=== PATIENT | male | born 1960 | race Caucasian/White ===

== ENCOUNTER 2021-04-21 17:50 | Inpatient (IN) | payer OTHER ==
[~2021-04-21] VITALS: Ht 172.7 cm; Wt 71.2 kg
[2021-04-21 18:11] VITALS: BP 122/77; PULSE 86; TEMP 97.4
[2021-04-21 19:58] LABS: HEMATOCRIT 49.9 % (42.0-52.0); HEMOGLOBIN 17.7 g/dl (13.5-18.0); MEAN CELL VOLUME 105 fl (80.0-100.0); MEAN CORPUSCULAR HEMOGLOBIN 37 pg (27.0-31.0); MEAN CORPUSCULAR HGB CONC 36 g/dl (33.0-37.0); MEAN PLATELET VOLUME 11.8 fl (7.4-10.4); PLATELET COUNT 210 K/mm3 (130-400); RED BLOOD COUNT 4.74 M/mm3 (4.20-5.60); REDCELL DISTRIBUTION WIDTH-CV 14.1 % (11.5-14.5)
[2021-04-21 20:00] VITALS: BP 126/75; PULSE 84; TEMP 97.7
[2021-04-21 20:11] LABS: INR 1.1 (0.8-3.0); PROTHROMBIN TIME 12.4 SECONDS (9.7-12.8)
[2021-04-21 20:13] LABS: PARTIAL THROMBOPLASTIN TIME 22.9 SECONDS (26.0-37.0)
[2021-04-21 20:34] LABS: ARTERIAL BLD GAS O2 SATURATION 94.3 % (92-100); ARTERIAL BLD GAS TCO2 CT 17.1; ARTERIAL BLOOD GAS BASE EXCESS -8.9 (-2-2); ARTERIAL BLOOD GAS PCO2 32.9 mmHg (35-45); ARTERIAL BLOOD GAS PO2 74.4 mmHg (80-100); ARTERIAL BLOOD GAS pH 7.31 (7.35-7.45)
[2021-04-21] MEDS ORDERED: ZITHROMAX500 M2 PO (20:34)
[2021-04-21] MEDS ORDERED: PREDNISONE20 MG PO (20:34)
[2021-04-21 20:37] LABS: BAND 19 % (0-10); LYMPHOCYTE 4 % (20.0-51.0); NEUTROPHILS 64 % (42.0-75.2); PLATELET ESTIMATE NORMAL (NORMAL)
[2021-04-21 20:44] VITALS: BP 129/73; PULSE 76; TEMP 98.3
[2021-04-21 20:57] LABS: ALBUMIN 2.3 gm/dL (3.4-4.8); BILIRUBIN,TOTAL 0.9 mg/dL (0.2-1.2); C-REACTIVE PROTEIN 23.7 mg/dL (0.00-0.50); CREATININE, serum 5.01 mg/dL (0.72-1.25); MAGNESIUM 1.9 mg/dL (1.6-2.6); PHOSPHOROUS 10.1 mg/dL (2.3-4.7); POTASSIUM 4.3 mmol/L (3.5-4.5); TOTAL PROTEIN 5.5 gm/dL (6.2-8.1)
[2021-04-21 20:59] LABS: CALCIUM 3.8 mg/dL (8.4-10.2)
[2021-04-21 21:04] LABS: TROPONIN-I 0.023 ng/mL (0.00-0.033)
[2021-04-22] MEDS ORDERED: SLEEP AID PO (00:02)
[2021-04-22] MEDS ORDERED: FOR ANXIETY PO (00:02)
[2021-04-22 00:28] LABS: CREATININE, serum 5.21 mg/dL (0.72-1.25); POTASSIUM 5.2 mmol/L (3.5-4.5)
[2021-04-22 00:46] LABS: MUCOUS Present /lpf; PH 5 (5-8); SQUAMOUS EPITHELIAL 0-2 /hpf; URINE APPEARANCE Cloudy; URINE BACTERIA None Seen /hpf; URINE BILIRUBIN Negative (NEGATIVE); URINE BLOOD 2+ (NEGATIVE); URINE COLOR Amber; URINE GLUCOSE 1+ (NEGATIVE); URINE KETONE Negative (NEGATIVE); URINE LEUKOCYTE ESTERASE Negative (NEGATIVE); URINE NITRATE Negative (NEGATIVE); URINE PROTEIN(semi-quant) 1+ (NEGATIVE); URINE RBC 0-2 /hpf; URINE UROBILINOGEN Negative (NEGATIVE)
[2021-04-22 00:52] LABS: CALCIUM 3.8 mg/dL (8.4-10.2)
--- NOTE | 2021-04-22 01:00 | NUR ---
PT ADMITTED TO THE UNIT, ASSESSMENT AND INTAKE COMPLETED. ORIENTED TO ROOM. PT EXPERIENCING FREQUENT AND URGENT DIARRHEA. TWO IVs STARTED AND BELTRE INSERTED. PT EXPERIENCING SOME PAIN IN RUQ OF ABDOMEN. DENIES ANY NEEDS. CONTINUING TO MONITOR.
[2021-04-22 01:32] LABS: COLLECTION METHOD CLEAN CATCH
[2021-04-22 03:28] VITALS: BP 131/67; PULSE 79; TEMP 97.9
--- NOTE | 2021-04-22 04:14 | NUR ---
LAB CAME UP AT 0300 TO DRAW HEP XA, BUT WAS UNABLE TO GET ANY BLOOD. TOLD THIS RN THAT HE WOULD SEND UP THE OTHER SCALLOPER AND SHE COULD BE UP IN ABOUT AN HOUR. CALLED DOWN TO LAB AND SHE IS COMING UP NOW TO DRAW IT.
[2021-04-22 05:06] VITALS: BP 131/67; PULSE 79; TEMP 97.9
[2021-04-22 05:23] LABS: CREATININE, serum 5.05 mg/dL (0.72-1.25); POTASSIUM 4.3 mmol/L (3.5-4.5)
[2021-04-22 05:46] LABS: CALCIUM 3.9 mg/dL (8.4-10.2)
[2021-04-22 05:47] LABS: ARTERIAL BLD GAS O2 SATURATION 95.3 % (92-100); ARTERIAL BLD GAS TCO2 CT 17.2; ARTERIAL BLOOD GAS BASE EXCESS -8.3 (-2-2); ARTERIAL BLOOD GAS HCO3 16.2 meq/L (22-26); ARTERIAL BLOOD GAS PCO2 31.5 mmHg (35-45); ARTERIAL BLOOD GAS PO2 78.5 mmHg (80-100); ARTERIAL BLOOD GAS pH 7.33 (7.35-7.45)
[2021-04-22 08:34] VITALS: BP 138/65; PULSE 77; TEMP 97.6
[2021-04-22 09:04] LABS: CREATININE, serum 5.07 mg/dL (0.72-1.25)
--- NOTE | 2021-04-22 09:36 | NUR ---
Pt awake upon entry, sitting on side of bed. no C/O pain at this time. Shift assessment complete, left Pt call light in reach, bed in lowest position.
[2021-04-22 11:51] LABS: CREATININE, serum 5.31 mg/dL (0.72-1.25); POTASSIUM 3.9 mmol/L (3.5-4.5)
[2021-04-22 11:52] LABS: CALCIUM 4.2 mg/dL (8.4-10.2)
[2021-04-22 13:06] VITALS: BP 123/68; PULSE 76; TEMP 97.7
--- NOTE | 2021-04-22 14:54 | NUR ---
PATIENT WANTED TO STOP TREATMENT MID WAY.
--- NOTE | 2021-04-22 16:04 | NUR ---
SW attempted to see patient but patient was unavailable. This worker will follow up to discuss d/c planning
[2021-04-22 16:16] LABS: CHOLESTEROL RISK RATIO 4.2; CREATININE, serum 4.96 mg/dL (0.72-1.25); POTASSIUM 3.6 mmol/L (3.5-4.5)
--- NOTE | 2021-04-22 16:24 | NUR ---
ornamental iron worker apprentice unable to meet with patient due to restroom/bed changing needs.
[2021-04-22 17:26] VITALS: BP 135/62; PULSE 76; TEMP 97.6
[2021-04-22 19:43] LABS: CREATININE, serum 4.96 mg/dL (0.72-1.25); POTASSIUM 3.3 mmol/L (3.5-4.5)
[2021-04-22 19:50] LABS: CALCIUM 3.7 mg/dL (8.4-10.2)
--- NOTE | 2021-04-22 21:34 | NUR ---
PT RESTING IN BED. EVENING MEDICATIONS GIVEN. PT DENIES ANY PAIN OR ANY NEEDS. STATES HIS DIARRHEA HAS SLOWED DOWN AND HIS STOOLS HAVE BECOME A BIT MORE FORMED. APPEARS DROWSY. WILL CONTINUE TO MONITOR.
[2021-04-22 23:13] VITALS: BP 116/63; PULSE 78; TEMP 98.6
[2021-04-22 23:55] LABS: CREATININE, serum 5.45 mg/dL (0.72-1.25); POTASSIUM 3.8 mmol/L (3.5-4.5)
[2021-04-23] VITALS (206 sets, daily range): BP systolic 99–128; BP diastolic 51–77; PULSE 63–78; TEMP 97.4–97.5; O2SAT 89–100
[2021-04-23 00:08] LABS: CALCIUM 3.8 mg/dL (8.4-10.2)
[2021-04-23 06:38] LABS: HEMATOCRIT 40.6 % (42.0-52.0); MEAN CELL VOLUME 103 fl (80.0-100.0); MEAN CORPUSCULAR HEMOGLOBIN 37 pg (27.0-31.0); MEAN CORPUSCULAR HGB CONC 36 g/dl (33.0-37.0); MEAN PLATELET VOLUME 11.6 fl (7.4-10.4); PLATELET COUNT 209 K/mm3 (130-400); RED BLOOD COUNT 3.94 M/mm3 (4.20-5.60)
[2021-04-23 06:41] LABS: HEMOGLOBIN 14.4 g/dl (13.5-18.0)
[2021-04-23 06:56] LABS: CREATININE, serum 5.47 mg/dL (0.72-1.25); POTASSIUM 3.6 mmol/L (3.5-4.5)
[2021-04-23 06:58] LABS: CALCIUM 3.6 mg/dL (8.4-10.2)
--- NOTE | 2021-04-23 08:00 | NUR ---
Pt awake upon entry, no C/O pain at this time. Very tired and weak. Shift assessment complete, left Pt call light in reach, bed in lowest position.
[2021-04-23 15:43] LABS: ARTERIAL BLD GAS O2 SATURATION 95.4 % (92-100); ARTERIAL BLD GAS TCO2 CT 12.3; ARTERIAL BLOOD GAS PCO2 41.2 mmHg (35-45); ARTERIAL BLOOD GAS PO2 93.9 mmHg (80-100)
[2021-04-23 15:46] LABS: ARTERIAL BLOOD GAS pH 7.04 (7.35-7.45)
[2021-04-23 15:48] LABS: MEAN CORPUSCULAR HGB CONC 34 g/dl (33.0-37.0); MEAN PLATELET VOLUME 11.5 fl (7.4-10.4); PLATELET COUNT 164 K/mm3 (130-400); RED BLOOD COUNT 2.93 M/mm3 (4.20-5.60); REDCELL DISTRIBUTION WIDTH-CV 14.6 % (11.5-14.5)
[2021-04-23 15:54] LABS: HEMATOCRIT 32.1 % (42.0-52.0); HEMOGLOBIN 10.9 g/dl (13.5-18.0); MEAN CELL VOLUME 110 fl (80.0-100.0); MEAN CORPUSCULAR HEMOGLOBIN 37 pg (27.0-31.0)
--- NOTE | 2021-04-23 16:15 | NUR ---
Patient arrived to ICU about this time, his eyes are closed/ moans and groans/ responds to pain, levophed was started on MEdical floor by ICU nurse prior to transporting down to ICU, see vital sign documentation, daughter present and has signed consent for non-tunneled dialysis cath and central line placmeents by , arrived around 1630 time out done, supplies gather and assisted with right femoral HDC placement and left femoral TL venous cath placement, wrist restraints and mitts in place for patient safety, patient tolerted well, notified and dialysis nurse called to initiate tx
--- NOTE | 2021-04-23 16:20 | NUR ---
Called by BETY Medina to come start patient on levophed gtt and assist in bringing patient to ICU. pt in reverse trendelenburg position with IVF bolus infusing when i arrived. BP 80s/40s. Levophed gtt started. Dr. Salazar near patient room to supervise. Patient actively having coffee ground stools and tongue is stained coffee color. He is on 10L oxygen via oxymask. He is transferred to ICU and rectal tube placed. Levophed titrated up upon arrival. MAP 85 after titration.
[2021-04-23 16:40] LABS: BAND 2 % (0-10); EOSINOPHIL 1 % (0-4); LYMPHOCYTE 6 % (20.0-51.0); NEUTROPHILS 87 % (42.0-75.2)
[2021-04-23 16:42] LABS: PLATELET ESTIMATE NORMAL (NORMAL)
[2021-04-23 17:53] LABS: ANION GAP 26 mmol/L; BLOOD UREA NITROGEN 124 mg/dL (8-26); CHLORIDE 90 mmol/L (98-107); CREATININE, serum 6.22 mg/dL (0.72-1.25); GLUCOSE 141 mg/dL (70-99); MAGNESIUM 2.1 mg/dL (1.6-2.6); PHOSPHOROUS 13.6 mg/dL (2.3-4.7); SODIUM 127 mmol/L (136-145)
[2021-04-23 17:55] LABS: HEMATOCRIT 39.3 % (42.0-52.0)
[2021-04-23 17:57] LABS: HEMOGLOBIN 13.5 g/dl (13.5-18.0)
[2021-04-23 18:08] LABS: CARBON DIOXIDE 11 mEq/L (23-31); TROPONIN-I < 0.010 ng/mL (0.00-0.033)
--- NOTE | 2021-04-23 18:08 | NUR ---
ASSISTED RNS WITH RE-PRONING PATIENT, ET PLACEMENT STABLE AND CUFF PRESSURE ACCEPTABLE.
--- NOTE | 2021-04-23 21:09 | NUR ---
PATIENT TOLERATED HIS 1ST HD TX WITH NO FLUID REMOVAL. DISCONTINUED TX 33 MINS EARLY FOR UNSUCCESSFUL TROUBLESHOOTING OF RIGHT FEMORAL CATHETER, UNABLE TO MAINTAIN A BLLOD FLOW RATE OF [address] JAMES AWARE.
[2021-04-23 22:56] LABS: HEMOGLOBIN 13.1 g/dl (13.5-18.0)
[2021-04-23 22:57] LABS: HEMATOCRIT 36.9 % (42.0-52.0)
[2021-04-23 23:04] LABS: ALBUMIN 1.8 gm/dL (3.4-4.8); CREATININE, serum 5.15 mg/dL (0.72-1.25); PHOSPHOROUS 10.2 mg/dL (2.3-4.7); POTASSIUM 3.8 mmol/L (3.5-4.5)
[2021-04-23 23:06] LABS: CALCIUM 4.3 mg/dL (8.4-10.2)
[2021-04-24] VITALS (711 sets, daily range): BP systolic 77–112; BP diastolic 50–73; PULSE 71–84; TEMP 97–98.1; O2SAT 66–100
--- NOTE | 2021-04-24 02:18 | NUR ---
MR. BURGESS BECAME VERY RESTLESS AND AGGITATED AROUND 1 AM. HE WAS STATING " GRAB THE CHAINS". HE WOULD ATTEMPT TO HIT CARE GIVERS. REORIENTATION WAS ATTEMPTED BUT HE WAS UNABLE TO COMPREHEND. PHYSICIAN WAS NOTIFIED AND HALDOL WAS ORDERED ONE TIME. THE PATIENT WAS PLACED BACK INTO 2 SOFT WRIST RESTRAINTS FOR HIS SAFETY AND LINES.
[2021-04-24 05:11] LABS: CREATININE, serum 5.45 mg/dL (0.72-1.25); POTASSIUM 3.8 mmol/L (3.5-4.5)
[2021-04-24 05:12] LABS: PHOSPHOROUS 10.2 mg/dL (2.3-4.7)
[2021-04-24 05:13] LABS: CALCIUM 4.1 mg/dL (8.4-10.2)
[2021-04-24 05:32] LABS: ARTERIAL BLD GAS O2 SATURATION 91.9 % (92-100); ARTERIAL BLD GAS TCO2 CT 14.7; ARTERIAL BLOOD GAS BASE EXCESS -13.4 (-2-2); ARTERIAL BLOOD GAS HCO3 13.6 meq/L (22-26); ARTERIAL BLOOD GAS PCO2 35.5 mmHg (35-45); ARTERIAL BLOOD GAS PO2 68.2 mmHg (80-100)
[2021-04-24 06:05] LABS: HEMOGLOBIN 12.4 g/dl (13.5-18.0); MEAN CORPUSCULAR HEMOGLOBIN 37 pg (27.0-31.0); MEAN CORPUSCULAR HGB CONC 36 g/dl (33.0-37.0); MEAN PLATELET VOLUME 11.5 fl (7.4-10.4); PLATELET COUNT 197 K/mm3 (130-400); RED BLOOD COUNT 3.38 M/mm3 (4.20-5.60); REDCELL DISTRIBUTION WIDTH-CV 14.1 % (11.5-14.5)
[2021-04-24 06:13] LABS: HEMATOCRIT 34.8 % (42.0-52.0); MEAN CELL VOLUME 103 fl (80.0-100.0)
[2021-04-24 06:41] LABS: ANISOCYTOSIS 1+; BAND 26 % (0-10); EOSINOPHIL 1 % (0-4); LYMPHOCYTE 1 % (20.0-51.0); NEUTROPHILS 69 % (42.0-75.2); OVALOCYTES 1+; PLATELET ESTIMATE NORMAL (NORMAL); POIKILOCYTOSIS 1+
--- NOTE | 2021-04-24 07:00 | NUR ---
RECEIVED REPORT FROM BETY MARTINEZ. PT RESTING IN BED ON 5L OM. FC PATENT AND DRAINING TO GRAVITY. VSS. SEE GTT FLOWSHEET. WILL MONITOR CLOSELY FOR NEED OF RESTRAINTS OR NOT.
--- NOTE | 2021-04-24 08:45 | NUR ---
PT COOPERATIVE WHEN DIALYSIS STARTS. PT FOLLOWS COMMANDS AND APPEARS TO COOPERATIVE AT THIS TIME. TOMB MAKER HELPER RESTRAINTS OFF AT THIS TIME. WILL MONITOR CLOSELY.
[2021-04-24 08:58] LABS: PATHOLOGY DIFF REVIEW OK
--- NOTE | 2021-04-24 12:00 | NUR ---
PATIENT TOLERATED 2ND HD TX NO FLUID REMOVAL, GIVEN 500 ML NS FLUSHES FOR RIGHT FEMORAL CATHETER ISSUES. NEXT PLANNED HD TX PENDING LABS.
--- NOTE | 2021-04-24 12:37 | NUR ---
Automotive Diagnostic Technician met with patient's daughter, Danuta (ph#[phone]) to complete intake as patient is not alert and oriented at this time. Danuta advised patient lives in [place] and is a cortes. Patient sees Dr. Mccall for primary care. Patient has breathing treatments at home, however per Danuta, he does not do them often. Patient does not use any DME and is normally independent with ADLS. Patient does not have Advance Directives. MOISES spoke with Danuta about Advance Directives and advised her that she and her sister, Fallon would be patient's legal next of kin and decision makers if patient is unable. Patient is not and has two daughters, Danuta and Fallon (ph#[phone]). SW spoke with patient's RN to advise that Danuta and Fallon are patient's legal next of kin. SW also updated contact information sheet on patient's chart. SW will continue to follow for needs.
--- NOTE | 2021-04-24 12:50 | NUR ---
DAUGHTER AT BEDSIDE. PT YELLING AND REQUESTING MITTS TO BE TAKEN OFF. PT BECOMES MORE COOPERATIVE WITH DAUGHTER AND STAFF ONCE MITTS ARE OFF. RN EXPLAINED TO PT AND DAUGHTER THAT IF HE FOLLOWS COMMANDS AND DOES NOT PULL AT LINES THEN HE CAN HAVE THEM OFF. WILL MONITOR CLOSELY. VERBALIZED UNDERSTANDING.
--- NOTE | 2021-04-24 13:10 | NUR ---
SPOKE TO DR GALAN ABOUT DAUGHTER'S REQUEST TO TALK TO HIM ABOUT POC AND CHANGING OUT DIALYSIS CATHETER PER DR JAMES/ DR CHAWLA'S SUGGESTION. DAUGHTER IS UNSURE OF WHAT SHE WOULD LIKE TO DO AND WOULD LIKE TO SPEAK TO THE DOCTOR ABOUT PROGNOSIS AND OPINIONS OR OPTIONS.
[2021-04-24 13:17] LABS: INR 1.3 (0.8-3.0); PROTHROMBIN TIME 14.3 SECONDS (9.7-12.8)
--- NOTE | 2021-04-24 13:30 | NUR ---
DAUGHTER HAS LEFT AND PT STATED HE WANTED TO TAKE A NAP. RN HELPS GET PT COMFORTABLE, REMINDS HIM TO NOT PULL AT LINES OR GET OOB ALONE. VERBALIZED UNDERSTANDING. ABOUT 15 MINUTES LATER PT TRIES TO GET OOB AND SETS OFF BEDALARM. PT HAS PULLED OFF HIS GOWN AND HAS HIS LINES STRETCHED OUT. RN ATTEMPTS TO HELP PT BACK INTO BED AND PT KEEPS REPEATING " WE ARE ALL ANYWAYS." EVENTUALLY PT RESPONDS TO REQUESTS TO GETTING BACK INTO THE BED AND REPOSITIONS SELF. PT CONTINUES TO PULL OFF OXYGEN MASK AND POX DROPS INTO HIGH 80s. PT PULLS AT FC, AGAINST RN'S REQUESTS NOT TO. SEE MAR FOR MEDICAITONS GIVEN. PT REQPOSITIONED BACK INTO BED. NOTED BOTH DIALYSIS CATHETER SITE AND CENTRAL FEMORAL SITE DRESSINGS WERE BOTH FALLING OFF. BOTH DRESSINGS CHANGED WITH STERILE TECHNIQUE AT THIS TIME. BEDALARM RESET BEFORE RN LEAVES ROOM.
--- NOTE | 2021-04-24 15:29 | NUR ---
DR GALAN AT BEDSIDE DISCUSSING POC AND WHAT DAUGHTER WOULD LIKE TO DO ABOUT CARE MOVING FORWARD.
--- NOTE | 2021-04-24 15:43 | NUR ---
UPDATED DR CHAWLA ON POC. PER DR GALAN, DAUGHTER IS GOING TO TAKE THE NIGHT TO DECIDE ABOUT POC AND WILL SPEAK WITH DR GALAN IN THE AM ABOUT HER DECISIONS. DR CHAWLA STATES HE WILL CHECK BACK IN TOMORROW ABOUT HER DECISIONS.
[2021-04-24] MEDS ORDERED: ATIVAN 0.50.5 MG/TAB PO (15:57)
[2021-04-24 16:21] LABS: CLOSTRIDIUM DIFF A/B NEG; CLOSTRIDIUM DIFF A/B INTERP No C.diff present
[2021-04-24 16:25] LABS: ARTERIAL BLD GAS O2 SATURATION 85.4 % (92-100); ARTERIAL BLD GAS TCO2 CT 21.8; ARTERIAL BLOOD GAS BASE EXCESS -7.2 (-2-2); ARTERIAL BLOOD GAS HCO3 20.3 meq/L (22-26); ARTERIAL BLOOD GAS PCO2 48.7 mmHg (35-45); ARTERIAL BLOOD GAS pH 7.24 (7.35-7.45)
--- NOTE | 2021-04-24 17:16 | NUR ---
PLACED PATIENT ON BIPAP VERBAL FROM DR LOCKE WITH SETTINGS 16/6 RATE 16 FIO2 40%.
--- NOTE | 2021-04-24 17:18 | NUR ---
PT TO CT AT 1700 AND BACK AT THIS TIME. TOLERATED WELL. DR LOCKE CALLED AND STATES WANTS PT ON BIPAP AND PRECEDEX GTT TO HELP HIM TOLERATE WEARING THE MASK. RT PLACES PT ON BIPAP. MITTS OFF. PRECEDEX STARTED, SEE GTT FLOWSHEET. PT DOES PICK AT LINES BUT DOES NOT FOLLOW SIMPLE COMMANDS AT THIS TIME. PT ATTEMPTS TO PULL OFF MASK BUT EVENTUALLY LEAVES IT ALONE. WILL MONITOR CLOSELY. PER PHARMACY, OK TO USE PRECEDEX GTT BUT IN LOWER DOSES D/T PT'S LIVER AND KIDNEY FUNCTION. WILL MONITOR CLOSELY. SEE GTT FLOWSHEET AND MAR ACCORDINGLY.
[2021-04-24 17:51] LABS: HEPATITIS B CORE AB,TOTAL Negative (())
[2021-04-24 17:52] LABS: HEPATITIS B SURFACE ANTIBODY <2.0 (()); HEPATITIS B SURFACE ANTIGEN Negative (Negative)
--- NOTE | 2021-04-24 19:35 | NUR ---
patient moving about bed, taking bipap mask off, hitting staff when asked to leave mask on, eyes closed, no verbal speech given by patient, meds administered
[2021-04-24 20:47] LABS: HEPATITIS C VIRUS ANTIBODY Negative (Negative)
[2021-04-24 20:56] LABS: ARTERIAL BLD GAS O2 SATURATION 71.9 % (92-100); ARTERIAL BLOOD GAS HCO3 21.7 meq/L (22-26); ARTERIAL BLOOD GAS PCO2 41.9 mmHg (35-45); ARTERIAL BLOOD GAS pH 7.33 (7.35-7.45)
[2021-04-24 20:57] LABS: ARTERIAL BLOOD GAS PO2 36.8 mmHg (80-100)
[2021-04-24 22:36] LABS: ARTERIAL BLD GAS O2 SATURATION 96.9 % (92-100); ARTERIAL BLD GAS TCO2 CT 23.8; ARTERIAL BLOOD GAS HCO3 22.4 meq/L (22-26); ARTERIAL BLOOD GAS PCO2 46.3 mmHg (35-45); ARTERIAL BLOOD GAS PO2 93.3 mmHg (80-100)
--- NOTE | 2021-04-24 22:36 | NUR ---
RAPID LABORED BREATHING PULLING AT MASK, BEDDING, EYES CLOSED, SEVERAL ADVENTITOUS SOUNDS IN LUNGS ON INHALATION EXPIRATION
--- NOTE | 2021-04-24 23:28 | NUR ---
FAMILY ARRIVES THIS EVENING, ARE MADE AWARE OF DAD THE PATIENT'S SHORTNESS OF BREATH, CIRCULATION DIFFICULTIES, PH MATTERS, THE FAMILY VISITS WITH PATIENT. UPON LEAVING PEEWEE THE DPOA ADVISES THAT DAD IS OK WITH CURRENT INTERVENTIONS AND NO MORE ADVANCE TREATMENT IS NEEDED. WE WILL STILL TALK COMFORT CARE IN AM
[2021-04-25] VITALS (302 sets, daily range): BP systolic 90–111; BP diastolic 55–74; PULSE 70–84; TEMP 97.1–98.4; O2SAT 85–100
[2021-04-25 03:00] LABS: ARTERIAL BLD GAS O2 SATURATION 95.3 % (92-100); ARTERIAL BLD GAS TCO2 CT 22.7; ARTERIAL BLOOD GAS BASE EXCESS -4.1 (-2-2); ARTERIAL BLOOD GAS HCO3 21.4 meq/L (22-26); ARTERIAL BLOOD GAS PCO2 40.9 mmHg (35-45); ARTERIAL BLOOD GAS PO2 80.9 mmHg (80-100); ARTERIAL BLOOD GAS pH 7.34 (7.35-7.45)
[2021-04-25 04:47] LABS: HEMOGLOBIN 11.7 g/dl (13.5-18.0); MEAN CELL VOLUME 104 fl (80.0-100.0); MEAN CORPUSCULAR HEMOGLOBIN 37 pg (27.0-31.0); MEAN CORPUSCULAR HGB CONC 36 g/dl (33.0-37.0); MEAN PLATELET VOLUME 11.4 fl (7.4-10.4); PLATELET COUNT 171 K/mm3 (130-400); RED BLOOD COUNT 3.15 M/mm3 (4.20-5.60); REDCELL DISTRIBUTION WIDTH-CV 14.6 % (11.5-14.5)
[2021-04-25 04:49] LABS: HEMATOCRIT 32.7 % (42.0-52.0)
[2021-04-25 05:07] LABS: ANISOCYTOSIS 1+; BAND 4 % (0-10); NEUTROPHILS 92 % (42.0-75.2); PLATELET ESTIMATE NORMAL (NORMAL)
--- NOTE | 2021-04-25 07:00 | NUR ---
RECEIVED REPORT FROM BETY FERRER. PT RESTING EASILY ON BIPAP AT 100%. VSS. CALL LIGHT WITHIN REACH. FC PATENT AND DRAINING TO GRAVITY. SEE GTT FLOWSHEET.
[2021-04-25 08:27] LABS: CREATININE, serum 5.18 mg/dL (0.72-1.25); POTASSIUM 3.8 mmol/L (3.5-4.5)
[2021-04-25 08:40] LABS: CALCIUM 4.3 mg/dL (8.4-10.2)
--- NOTE | 2021-04-25 09:45 | NUR ---
PT PLACED ON COMFORT CARE AT THIS TIME.BIPAP OFF AND LEVOPHED TURNED OFF. PER DR GALAN LEAVE PRECEDEX ON PT TO HELP WITH COMFORT MEASURES.
--- NOTE | 2021-04-25 10:13 | NUR ---
Initial visit; Patient's nurse requested support for patients's daughter Danuta. Computing Machine Operator offered support and prayer. When patient was sedated and settled in Computing Machine Operator encouraged Danuta to go get something to eat and rest for awhile in her motel room. Nurse will call her if change takes place in her Dad's health status. Nurse will also contact Computing Machine Operator at that time.
--- NOTE | 2021-04-25 10:56 | NUR ---
Lease Out Man spoke with Hospitalist who advised patient will be put on comfort measures and that patient's daughter, Danuta had information about the home she would like to use when patient passes. Hospitalist advised patient will likely pass here. MOISES met with Danuta and offered emotional support. Danuta advised she would like to use [facility] in [place], [place]. MOISES provided this information to Carolina, ICU tooling supervisor. Danuta would like to have a visit from Housekeeper Headwilma Winters. MOISES contacted Chaplain Winters who will be here shortly.
--- NOTE | 2021-04-25 12:00 | NUR ---
NO BREATHS NOTED. APICAL PULSE ASCULTATED BY THIS RN AND BETY DEL ANGEL. TOGe CALLED AT 1200. DR GALAN MADE AWARE. DAUGHTER WAS AT BEDSIDE BY TOD CALLED.
--- NOTE | 2021-04-25 12:27 | NUR ---
MTN notifed of patient's . Referral number [id number]. Patient is a candidate for eye donation. Expect return call from [facility].
--- NOTE | 2021-04-25 12:57 | NUR ---
Patient is a candidate for eye donation. Agency will contact the daughter for consent.
--- NOTE | 2021-04-25 12:59 | NUR ---
POST MORTEM CARE PROVIDED AT THIS TIME. ALL LINES OUT. ICE PLACED OVER EYELIDS THAT WERE CLOSED.
--- NOTE | 2021-04-25 13:07 | NUR ---
Patient is no longer a candidate for eye donation. Contacted home. They will contact a local home for transport. Expect return call.
--- NOTE | 2021-04-25 13:25 | NUR ---
Follow-up: Tow Truck Operator encouraged patient's daughterDanuta to take a break yet know that patients often seem to pass when family members aren't with them. In this case, this happened. Tow Truck Operator walked Danuta out of the hospital and offered condolences. Tow Truck Operator offered prayer at the patient's bedside.
--- NOTE | 2021-04-25 14:00 | NUR ---
[facility] at bedside for transport on behalf of [facility].
== END 2021-04-25 14:00 | disposition expired | DRG 438 ==
LOC: MEDICAL 17:50 → ICU 17:50 → MEDICAL 23:00 → ICU 04-23 16:07
PROVIDERS: Internal Medicine; Internal Medicine Infectious Disease; Internal Medicine Nephrology; Internal Medicine Pulmonary Disease; Nurse Practitioner Family; Physician Assistant; Surgery; ADMIT Student in an Organized Health Care Education/Training Program
PROC: 5A1D70Z Performance of Urinary Filtration, Intermittent, Less than 6 Hours Per Day (ICD-10-PCS; principal; 2021-04-23)
PROC: 02HV33Z Insertion of Infusion Device into Superior Vena Cava, Percutaneous Approach (ICD-10-PCS; 2021-04-23)
PROC: 5A09457 Assistance with Respiratory Ventilation, 24-96 Consecutive Hours, Continuous Positive Airway Pressure (ICD-10-PCS; 2021-04-24)
DX: K85.20 Alcohol induced acute pancreatitis without necrosis or infection (principal); J96.01 Acute respiratory failure with hypoxia; E43 Unspecified severe protein-calorie malnutrition; G93.41 Metabolic encephalopathy; A04.72 Enterocolitis due to Clostridium difficile, not specified as recurrent; N17.9 Acute kidney failure, unspecified; E87.1 Hypo-osmolality and hyponatremia; K56.7 Ileus, unspecified; E87.4 Mixed disorder of acid-base balance; J98.11 Atelectasis; K92.2 Gastrointestinal hemorrhage, unspecified; M62.82 Rhabdomyolysis; R18.8 Other ascites; Z68.1 Body mass index [BMI] 19.9 or less, adult; E87.2 Acidosis; Z20.822 Contact with and (suspected) exposure to COVID-19; Z66 Do not resuscitate; Z51.5 Encounter for palliative care; I48.0 Paroxysmal atrial fibrillation; K74.60 Unspecified cirrhosis of liver; E87.8 Other disorders of electrolyte and fluid balance, not elsewhere classified; E83.39 Other disorders of phosphorus metabolism; D53.9 Nutritional anemia, unspecified; I25.2 Old myocardial infarction; E83.51 Hypocalcemia; E87.6 Hypokalemia; J43.9 Emphysema, unspecified; F10.10 Alcohol abuse, uncomplicated; R73.9 Hyperglycemia, unspecified; F17.210 Nicotine dependence, cigarettes, uncomplicated; Z79.52 Long term (current) use of systemic steroids; Z85.820 Personal history of malignant melanoma of skin; Z88.8 Allergy status to other drugs, medicaments and biological substances
CPT/HCPCS: 99223-AI; 99233-AI; A4217; A9540; A9567; C1751; C9113; J0610; J0692; J1170; J1630; J1644; J1720; J2060; J2185; J2270; J2543; J7030; J7040; J7050; J7060; J7120